=== PATIENT | female | born 1935 | race Caucasian/White ===

== ENCOUNTER → 2017-03-29 | Outpatient (CLI) | payer OTHER, MEDICARE ==
[~2017-03-29] MED LIST: ADULT LOW DOSE81 MG PO; ALLEGRA60 MG PO; AUGMENTIN 875-1 EACH PO; B COMPLEX-VITA1 EACH PO; BETIMOL15 ML IO; DIOVAN PO; FIFTY50 RESERV1 EACH; LASIX 20 MG TAB20 MG PO; LEVOTHROID88 MCG; LEVOXYL25 MCG PO; MULTIVITAMINS PO; NORCO 5-325 TA1 EACH PO; PACERONE 200 M200 M1; TRAVATAN 0.004%5 ML IO; XALATAN2.5 ML
== END ==
LOC: RAD 11:07
DX: M47.22 Other spondylosis with radiculopathy, cervical region (principal); R20.9 Unspecified disturbances of skin sensation